=== PATIENT | female | born 1975 | race Caucasian/White ===

== ENCOUNTER 2025-01-24 16:13 | Emergency (ER) | payer OTHER ==
[~2025-01-24] VITALS: Ht 167.6 cm; Wt 79.0 kg
[2025-01-24 16:58] VITALS: BP 135/61; PULSE 68; RESP 20; TEMP 98.1; O2SAT 97
[2025-01-24] MEDS: IBUPROFEN 400 MG TABLET PO ONE (17:33)
[2025-01-24] MEDS ORDERED: ASPI-1450 PO (17:35)
[2025-01-24] MEDS ORDERED: ATOR10TA PO (17:35)
[2025-01-24] MEDS: LIDOCAINE 5% TRANSDERMAL PATCH TD ONE (18:45)
== END 2025-01-24 19:01 ==
LOC: EMS 16:13
DX: S20.214A Contusion of middle front wall of thorax, initial encounter (principal); E78.00 Pure hypercholesterolemia, unspecified; I10 Essential (primary) hypertension; Z79.82 Long term (current) use of aspirin; Z79.899 Other long term (current) drug therapy; V49.40XA Driver injured in collision with unspecified motor vehicles in traffic accident, initial encounter; Y93.89 Activity, other specified; Y92.410 Unspecified street and highway as the place of occurrence of the external cause; Y99.8 Other external cause status
CPT/HCPCS: 71045; 99283

== ENCOUNTER 2025-02-02 11:02 | Emergency (ER) | payer OTHER ==
[~2025-02-02] VITALS: Ht 167.6 cm; Wt 79.0 kg
[~2025-02-02 11:02] MED LIST: ASPI-1450 PO; ATOR10TA PO
[2025-02-02 11:04] VITALS: BP 119/75; PULSE 78; RESP 18; TEMP 98.5; O2SAT 99
[2025-02-02] MEDS ORDERED: ACET-66 PO (11:55)
[2025-02-02] MEDS ORDERED: IBUP-1554 PO (11:55)
== END 2025-02-02 12:04 | disposition home or self-care (01) ==
LOC: EMS 11:02
DX: S20.211A Contusion of right front wall of thorax, initial encounter (principal); S40.021A Contusion of right upper arm, initial encounter; E78.00 Pure hypercholesterolemia, unspecified; I10 Essential (primary) hypertension; Z79.899 Other long term (current) drug therapy; Z95.0 Presence of cardiac pacemaker; Z79.82 Long term (current) use of aspirin; V89.2XXA Person injured in unspecified motor-vehicle accident, traffic, initial encounter; Y93.89 Activity, other specified; Y92.410 Unspecified street and highway as the place of occurrence of the external cause; Y99.8 Other external cause status
CPT/HCPCS: 99283; Z7502